=== PATIENT | male | born 1960 | race Caucasian/White ===

== ENCOUNTER 2019-06-16 17:28 | Inpatient (IN) ==
[2019-06-16 17:57] LABS: BASO# 0.01 X1000 (0.0-0.2); BASO% 0.1 % (0.0-0.8); HEMATOCRIT 43.4 % (42.0-52.0); HEMOGLOBIN 15.1 g/dL (14.0-18.0); IMM GRAN# 0.03 X1000 (0.0-0.04); IMM GRAN% 0.3 % (0.0-0.5); LYMPH# 0.36 X1000 (1.2-3.4); LYMPH% 4.2 % (20.5-51.1); MCH 32.1 PG (27-31); MCHC 34.8 g/dL (33-37); MCV 92.1 FL (81-99); MONO% 8.1 % (1.7-9.3); MPV 9.9 FL (7.4-10.4); NEUT# 7.57 X1000 (1.4-6.5); NEUT% 87.3 % (42.2-75.2); PLT 148 X1000 (130-400); RBC 4.71 XMIL (4.7-6.1); WBC 8.67 X1000 (4.8-10.8)
[2019-06-16 18:25] LABS: UR AMPHETAMINES QUAL NONE DETECTED (NONE DETECT); UR BARBITUATES QUAL NONE DETECTED (NONE DETECT); UR BENZODIAZEPIN QUAL PRESUMPTIVE POSITIVE (NONE DETECT); UR CANNABINOIDS QUAL PRESUMPTIVE POSITIVE (NONE DETECT); UR COCAINE QUAL NONE DETECTED (NONE DETECT); UR METHADONE QUAL NONE DETECTED (NONE DETECT); UR METHAMPHETAMINE QUAL NONE DETECTED (NONE DETECT); UR OPIATES QUAL PRESUMPTIVE POSITIVE (NONE DETECT); UR OXYCODONE QUAL NONE DETECTED (NONE DETECT); UR PCP QUAL NONE DETECTED (NONE DETECT); UR PROPOXYPHENE QUAL NONE DETECTED (NONE DETECT); UR TCA QUAL NONE DETECTED (NONE DETECT)
[2019-06-16 18:25] LABS: AGAP 21; ALKALINE PHOSPHATASE 107 U/L (32-122); BUN 14 mg/dL (8-22); CALCIUM 9.4 mg/dL (8.8-10.2); CHLORIDE 93 mmol/L (98-107); COSMO 277; CREATININE 0.6 mg/dL (0.7-1.2); ESTIMATED GFR > 60; GLUCOSE 178 mg/dL (70-104); GOT 24 U/L (10-34); GPT 18 U/L (10-44); POTASSIUM 3.3 mmol/L (3.5-5.1); SODIUM 136 mmol/L (136-145); TCO2 22 mmol/L (25-35); TOTAL PROTEIN 7.5 g/dL (6.3-8.3)
[2019-06-16 18:30] LABS: BILIRUBIN URINE 1+ (NEGATIVE); BLOOD URINE 1+ (NEGATIVE); CLARITY SL. CLOUDY (CLEAR); COLOR YELLOW; KETONE URINE 2+(Moderate) mg/dL (NEGATIVE); LEUKOCYTES URINE TRACE (NEGATIVE); NITRITE URINE NEGATIVE (NEGATIVE); PROTEIN URINE TRACE mg/dL (NEGATIVE); UROBILINOGEN URINE 4 mg/dL
[2019-06-16 18:40] LABS: URINE BACTERIA 1+ /HFP; URINE EPITHELIAL CELLS <10 /HPF (<10)
[2019-06-16 18:41] LABS: URINE CAST NONE SEEN /LPF; URINE CRYSTAL URIC ACID PRESENT /HPF; URINE SOURCE CLEAN CATCH; URINE WBC <10 /HPF (<10); URINE YEAST NONE SEEN /HPF
[2019-06-16] MEDS ORDERED: GEODON IM ONE (18:42)
[2019-06-16] MEDS ORDERED: STERILE WATER INJ. INJ ONE (18:42)
--- NOTE | 2019-06-16 18:43 | PROVIDER DOCUMENTATION ---
This chart was entered by Vita Bhardwaj Scribe, acting as scribe for Stanton Chavira MD. HPI-General Adult - General Chief Complaint: Altered Mental Status Stated Complaint: ams Time Seen by Provider: 06/16/19 17:38 Source: patient, EMS Allergies/Adverse Reactions: Patient Allergies Allergy/AdvReac Type Severity Reaction Status Date / Time NSAIDS (Non-Steroidal AdvReac NAUSEA/VOMI Verified 03/11/17 13:45 Anti-Inflamma TING Home Medications: Home Medication List Medication Instructions Recorded Confirmed Last Taken Type Acetaminophen E.r. [Tylenol 650 mg PO TID #20 tablet 03/11/17 Unknown Rx Arthritis] Calcitonin,[place],Synthetic 1 spray NS DAILY 06/17/19 06/17/19 Unknown History [Miacalcin] Gabapentin 800 mg PO Q6HR 06/17/19 06/17/19 Unknown History Hydrochlorothiazide 25 mg PO DAILY 06/17/19 06/17/19 Unknown History Levocetirizine Dihydrochloride 5 mg PO DAILY 06/17/19 06/17/19 Unknown History [Xyzal] Montelukast Sodium [Singulair] 10 mg PO HS 06/17/19 06/17/19 Unknown History Sertraline HCl [Zoloft] 100 mg PO DAILY 06/17/19 06/17/19 Unknown History - History of Present Illness -Gen Adult Nature of Presenting Problems: 59 yowm presents to the ed via ems with c/o back pain. pt sts he fell last night in his bathroom and on exam is a/o x3. per ems pt family called 911 due to ams and ems sts pt was a/o x1. pt is restless and is in constant movement in the bed. pt answers all questions when asked and at this time pt has no family in the er. pt had recent knee sx pt admits to smoking marijuana recently Location of Pain/Injury: reports: back (thoracic and lumbar) Pain Radiation: reports: no radiation Quality of Pain: reports: aching Severity: reports: moderate Onset/Duration: reports: last night (fell) Timing: reports: still present Context/Activities at Onset: reports: other (fell in bathroom/denies LOC or head injury) Modifying Factors: improves with: nothing Associated Symptoms: reports: back/neck pain (back pain). denies: chest pain, diarrhea, fever/chills, headaches, nausea, shortness of breath, vomiting, weakness Similar Symptoms Previously?: Yes Recently seen or treated by another doctor?: No Review of Systems - Adult - REVIEW OF SYSTEMS - ADULT Constitutional: denies: chills, fever Eyes: reports: no symptoms reported Ears, Nose, Mouth & Throat: reports: no symptoms reported Cardiovascular: denies: chest pain, palpitations, syncope Respiratory: denies: cough, shortness of breath, wheezing Gastrointestinal: denies: abdominal pain, diarrhea, nausea, vomiting Genitourinary: reports: no symptoms reported Musculoskeletal: reports: see HPI, back pain, muscle aches. denies: neck pain Integumentary: reports: no symptoms reported Neurological: reports: loss of balance. denies: ataxia, dizziness/vertigo, headache/migraines, slurred speech Psychiatric: reports: no symptoms reported Endocrine: reports: no symptoms reported Hematologic/Lymphatic: reports: no symptoms reported Allergic/Immunologic: reports: no symptoms reported All Other Systems: Reviewed and Negative Past History - Adult - PAST MEDICAL HISTORY-ADULT Review of Records: reports: Old Records Reviewed, Nursing Assessment Review, Medications Reviewed, Social history reviewed & non-contributory. Major Childhood Illnesses: reports: denies history Cardiovascular: reports: HTN Respiratory: reports: denies history Gastrointestinal: reports: GERD, GI bleed Genitourinary: reports: denies history Musculoskeletal: reports: chronic pain Hand Dominance: Right Handed Neurological: reports: denies history Psychiatric: reports: anxiety Endocrine/Immune: reports: denies history Other Conditions: reports: denies history - PRIOR SURGERIES/PROCEDURES Surgical/Procedure History: reports: recent surgery (knee), orthopedic (extremity), back/neck, gastric bypass - IMMUNIZATION STATUS Childhood Immunizations: See Nurse Assessment Flu Vaccine: See Nurse Assessment - FAMILY HISTORY Family History: reviewed, not pertinent - SOCIAL HISTORY Smoking: denies Substance Use: marijuana Living Situation: family Physical Exam-General - PHYSICAL EXAM-ADULT Exam Limited by: pt is restless and moving all in the bed. is a/o x3 Initial Vital Signs Reviewed: Yes - CONSTITUTIONAL General Appearance: appears well, alert, mild distress, other (restless) - EYES Eyes: pink conjunctivae - HEAD, EARS, NOSE, MOUTH & THROAT HENMT: moist mucous membranes - NECK Neck: full range of motion, normal inspection - RESPIRATORY Respiratory: chest non-tender, lungs clear, normal breath sounds - CARDIOVASCULAR Cardiovascular: normal peripheral pulses, tachycardia (121) - CHEST (BREASTS) Chest/Breast: deferred - GASTROINTESTINAL (ABDOMEN) Abdominal Exam: normal bowel sounds, non tender, soft - GENITOURINARY Male Genitalia: deferred Rectal Exam: deferred Hemoccult Exam: deferred - MUSCULOSKELETAL Back Exam: no CVA tenderness, ecchymosis (left thoracic), other (abrasion to left posterior shoulder/pt c/o thoracic and lumbar pain) Extremity: normal range of motion, normal capillary refill, pelvis stable - SKIN Integumentary: warm/dry, abrasion(s) (left posterior shoulder), ecchymosis (left back), pallor - NEUROLOGIC Neurologic: grossly normal - PSYCHIATRIC Psych/Mental Status: normal thought content, normal thought process, oriented x 3, disheveled Progress - PLAN OF CARE/RESULTS Result Diagrams: 06/16/19 17:45 06/16/19 17:45 - EKG 1 Time of EKG reading by physician:: 17:51 EKG Read and Signed by:: Stanton Chavira EKG Interpretation (*Must complete 3 of following elements*): Abnormal Rate: 117 Rhythm: sinus tachycardia [place]: normal QRS: other (prolonged QT) IN Interval: normal Comments: ST and T wave abnormality consider inferor or anterior ischemia - CT/MRI 1 CT Study: Cervical Spine, Head, Neck Impression: See EMR Report 2 CT Study: Abdomen, Pelvis, Thorax Impression: See EMR Report - CHANGE OF SHIFT REPORT (ED Provider) 1 Report Given and Care Transferred to:: Dr Hogan Time of Transfer: 19:00 Items Pending: Labs, CT/MRI Results Departure - Departure Date of Disposition Decision: 06/17/19 Time of Disposition Decision: 01:16 DIAGNOSIS: Altered mental status Disposition: ADMITTED INPATIENT 09 Certified Medical Emergency: Emergent Condition: Stable - Critical Care Note This patient required my direct & personal management of CC.: Yes Total Time (mins): 60 Critical Care Statement: This patient required my direct personal management to treat or rule out processes, the absence of which, could potentiallly result in sudden, clinically significant life or limb threatening deterioration. Attestation - Physician/ [place] Attestation Patient care was provided by Advanced Practice Provider:: No The physician spent face to face time with patient:: Yes Advanced Practice Provider documentation review:: Supervising physician onsite and consulted in the evaluation and care of this patient. The physician did have a face to face encounter with the patient. This chart was documented by the indicated scribe, (Vita Bhardwaj Scribe) and accurately reflects the services I performed and decisions made by me, Stanton Chavira MD, as attested by the provider's signature.
--- NOTE | 2019-06-16 19:04 | EKG Report ---
Test Performed on : 06/16/2019 5:51:03 PM Test Reason : ams Blood Pressure : / mmHG Vent. Rate : 117 BPM Atrial Rate : 117 BPM P-R Int : 120 ms QRS Dur : 090 ms QT Int : 434 ms P-R-T Axes : 000 014 024 degrees QTc Int : [address] & T wave abnormality, consider inferior ischemia ST & T wave abnormality, consider anterior ischemia Prolonged QT Abnormal ECG When compared with ECG of 11-MAR-2017 14:00, ST now depressed in Inferior leads ST now depressed in Anterolateral leads T wave inversion now evident in Inferior leads T wave inversion now evident in Anterior leads Unconfirmed Result
--- NOTE | 2019-06-16 20:12 | Diag Imaging Result Doc PS360 ---
EXAM: CT HEAD/C-SPINE W/O CONTRAST 06/16/2019 HISTORY: ams, fall TECHNIQUE: This exam was performed using automated exposure control, adjustment of mA or kV according to patient size, and/or use of iterative reconstruction technique. COMMENT: There is no evidence of mass effect, bleed, or abnormal extra-axial fluid collection. The paranasal sinuses are clear. There is apparent displacement of the nasal bones to the left. Cervical spine: There is considerable motion artifact. The facets appear to be aligned. There is no evidence of prevertebral soft tissue swelling. There is no evidence of fracture or subluxation. IMPRESSION: No evidence of acute disease intracranially or in the cervical spine. Electronically signed by Juan Cardoza 06/16/2019 8:10 PM
[2019-06-16] MEDS ORDERED: NS 1,000 ML IV ONE ×3 (20:21→23:30)
[2019-06-16] MEDS ORDERED: VERSED IV ONE (20:36)
[2019-06-16] MEDS ORDERED: MAGNESIUM SULFATE 2 GM/S.W.I. 2 GM/50 ML IVPB IV ONE (20:52)
[2019-06-16] MEDS ORDERED: ROCEPHIN 2 GM in NS 50 ML IV ONE (21:02)
[2019-06-16] MEDS ORDERED: AMIDATE IV ONE ×2 (21:09→21:45)
[2019-06-16] MEDS ORDERED: ZEMURON IV ONE (21:10)
[2019-06-16] MEDS ORDERED: QUELICIN ONE (21:30)
[2019-06-16] MEDS ORDERED: KETAMINE ONE (21:36)
--- NOTE | 2019-06-16 21:38 | Diag Imaging Result Doc PS360 ---
EXAM: CHEST-PORTABLE 06/16/2019 HISTORY: FALL TECHNIQUE: AP portable at 2145 COMMENT: The inspiration is suboptimal. There are some apparently old rib fractures on the right which were present on the previous examination. Considering the degree of inspiration there has been no significant change since 03/10/2018. IMPRESSION: Poor inspiration. Electronically signed by Juan Cardoza 06/16/2019 9:35 PM
[2019-06-16] MEDS ORDERED: KETAMINE IV ONE ×2 (21:40→21:45)
[2019-06-16] MEDS ORDERED: QUELICIN IV ONE (21:50)
[2019-06-16] MEDS: DIPRIVAN 1% 1,000 MG/100 ML BOTTLE IV SCH ×4 (21:55→23:37)
[2019-06-16] MEDS ORDERED: NORCURON ONE (22:02)
[2019-06-16] MEDS ORDERED: STERILE WATER INJ. ONE (22:03)
[2019-06-16] MEDS ORDERED: NORCURON IV ONE (22:05)
[2019-06-16] MEDS ORDERED: NS 1,000 ML ONE (22:44)
[2019-06-16] MEDS ORDERED: VANCOMYCIN 1 GM/NS 1 GM/250 ML IVPB IV ONE (23:08)
[2019-06-16 23:23] LABS: BE -0.2 mmoll (-3.0-3.0); BLOOD TYPE ARTERIAL; HCO3-(ACT) 24.7 mmoll (20.0-26.0); METHB 1.7 % (0.0-1.5); O2(CT) 19.5 mL/dL (15.0-23.0); O2HB 96.2 % (95.0-99.0); PCO2(98.6) 27 mmHg (35-45); PO2(98.6) 386 mmHg (60-100); SAMPLE BLOOD; SAO2 100.1 % (95.0-100.0); SRATE 16 BPM; THB 13.7 g/dL (11.5-17.4); TVOL 550 mL; pH(98.6) 7.51 (7.35-7.45)
[2019-06-16 23:25] LABS: ALLEN TEST YES; MODALITY VENTILATOR
[2019-06-17] MEDS: DIPRIVAN 1% 1,000 MG/100 ML BOTTLE IV SCH ×9 (00:12→21:02)
[2019-06-17] MEDS ORDERED: ZOFRAN IV PRN (02:24)
[2019-06-17] MEDS ORDERED: SODIUM CHLORIDE 0.9% INJ SCH (02:30)
[2019-06-17] MEDS: PEPCID IV SCH ×2 (03:08→13:59)
[2019-06-17] MEDS: LOVENOX SUBQ SCH (03:08)
[2019-06-17] MEDS: POTASSIUM CHLORIDE 20 MEQ/SWI 20 MEQ/100 ML IVPB IV SCH ×2 (03:08→05:48)
[2019-06-17 04:03] LABS: HEMOGLOBIN A1C 5.2 % (4.8-6.0)
[2019-06-17 05:08] LABS: BLOOD TYPE ARTERIAL; SAMPLE BLOOD
[2019-06-17 05:09] LABS: ALLEN TEST YES; BE -0.6 mmoll (-3.0-3.0); HCO3-(ACT) 24.4 mmoll (20.0-26.0); METHB 1.4 % (0.0-1.5); MODALITY VENTILATOR; O2(CT) 29.7 mL/dL (15.0-23.0); O2HB 96.8 % (95.0-99.0); PCO2(98.6) 28 mmHg (35-45); PO2(98.6) 201 mmHg (60-100); SAO2 100.2 % (95.0-100.0); SRATE 14 BPM; THB 21.6 g/dL (11.5-17.4); TVOL 500 mL; pH(98.6) 7.48 (7.35-7.45)
--- NOTE | 2019-06-17 05:48 | HISTORY AND PHYSICAL ---
CHIEF COMPLAINT: Altered mental status. PRIMARY CARE PROVIDER: Carrie Samano. HISTORY OF PRESENT ILLNESS: Mr. Ravi is a 59-year-old male who presented to [facility] tonight after the family called EMS related to altered mental status. Apparently he had a fall last night in the bathroom. The family stated the patient was alert and oriented x1. On assessment at [facility] he was found to be restless and in constant movement. Apparently at that time he answered all questions. There was some mention of a recent surgery, however, the two areas mentioned were knee and back and no recent incisions could be found on the patient. This was during my assessment when he arrived at [facility]'s ICU. Again while in the emergency room he became more and more restless and agitated. He received multiple doses of ketamine as well as Geodon and ultimately was intubated and sedated. He will be admitted for further evaluation and treatment. PAST MEDICAL HISTORY: All past medical history comes from ER charting. It appears that he has had hypertension, GERD, GI bleed, chronic pain and anxiety. SURGICAL HISTORY: Is noted in the ER note as recent knee surgery, orthopedic extremity, back, neck and gastric bypass. FAMILY HISTORY: This could not be reviewed. SOCIAL HISTORY: Apparently denies tobacco. He does drink. I am unsure how often, and he recently used marijuana. ALLERGIES: NSAIDs. HOME MEDICATIONS: No list is available. REVIEW OF SYSTEMS: Review of systems could not be obtained. Patient is intubated and sedated. PHYSICAL EXAMINATION: VITAL SIGNS: Temp 98.9, pulse 79, respirations 14, blood pressure 100/63, oxygen saturation 100% on mechanical ventilation. GENERAL: A 59-year-old male lying in the ER stretcher. Intubated and sedated. No acute distress. HEENT: Head is atraumatic, normocephalic. Pupils are miotic, equal, round, sluggishly reactive. Sclerae anicteric. Conjunctivae is pale. Oral mucosa is mildly dry. ET tube in place. NECK: Trachea midline. No JVD. CARDIAC: S1, S2 appreciated. No murmurs, gallops, rubs. LUNGS: Clear to auscultation bilaterally. No rhonchi, wheezes or rales. Symmetric rise and fall of respirations. ABDOMEN: Soft, nondistended. Bowel sounds present in all four quadrants. Normoactive. No pulsatile mass or organomegaly. EXTREMITIES: No cyanosis, clubbing or edema. SKIN: Clean and dry with abrasions on his posterior shoulder on the left side, ecchymosis on the left back. NEUROLOGICAL: Intubated and sedated. Could not be assessed. DIAGNOSTIC DATA: EKG, sinus tachycardia. Prolonged Qt interval. ST and T wave abnormality. CT of the head, no acute intracranial process. CT of the abdomen and pelvis and thorax is pending. Chest x-ray, ET tube needs to be moved back around 2 cm. It is at the level of the ra. Poor film. Patient possibly has dextrocardia. No infiltrates or edema. LABORATORY DATA: WBC 8.67, hemoglobin 15.1, hematocrit 43.4, platelet count 148, sodium 136, potassium 3.3, chloride 93, carbon dioxide 22, BUN 14, creatinine 0.6, glucose 178. ASSESSMENT AND PLAN: 1. Acute delirium. This is of unknown etiology. It could be toxic metabolic encephalopathy. The family seem to think that it was possible that the patient had taken too much pain medicine. Also recently apparently had used marijuana. Toxicology screen was positive for benzodiazepines, opiates and cannabinoids. I am unsure how often the patient drinks. Will continue supportive treatment with fluids, keep the patient intubated and sedated at this time and check electrolytes. 2. Hypokalemia. Treat and recheck. 3. Respiratory alkalosis. The patient was hyperventilating at that time. This will resolve with sedation and ventilation. 4. Hyperglycemia. Check hemoglobin A1c. As far as I know the patient does not carry a diagnosis of diabetes mellitus. 5. Alcohol use. Unknown how frequent this is. Will give the patient a banana bag. Check electrolytes. Further recommendations per the patient's clinical course. Critical care time 30 minutes. Dictated by MELA Burt for Robbi Manuel MD cc: MELA Haney MD Independent exam showed sedated middle aged WM who was only responsive to pain grimacing. Very limited exam. Suspect that pt was either withdrawing from or is intoxicated from something. For now, supportive measures and will need to be reassessed later today off sedation. MTDD
--- NOTE | 2019-06-17 07:13 | Diag Imaging Result Doc PS360 ---
EXAM: CHEST-PORTABLE 06/16/2019 HISTORY: TUBE PLACEMENT TECHNIQUE: AP portable at 2215 COMMENT: There is an endotracheal tube with its tip at thoracic inlet. This is actually a centimeter above the ra. The inspiration is markedly suboptimal. Considering the degree of inspiration there has been no significant change since the previous study at 2145. IMPRESSION: Poor inspiration. Electronically signed by Juan Cardoza 06/17/2019 7:11 AM
--- NOTE | 2019-06-17 07:17 | Diag Imaging Result Doc PS360 ---
EXAM: CHEST-PORTABLE 06/17/2019 HISTORY: ET tube withdrawn 2 cm; Confirm NG tube placement TECHNIQUE: AP portable at 0513 COMMENT: There is an endotracheal tube with its tip at the thoracic inlet and an NG tube which passes below the diaphragm. There is atelectasis in the left base which is worse than on 06/16/2019. IMPRESSION: Worsened atelectasis versus pneumonia left lower lobe. Electronically signed by Juan Cardoza 06/17/2019 7:15 AM
[2019-06-17] MEDS: M.V.I.-12 10 ML, FOLIC ACID 1 MG, MAGNESIUM SULFATE 1 GM, THIAMINE 100 MG in NS 1,000 ML IV SCH (08:34)
[2019-06-17] MEDS: ZOSYN 3.375 GM in NS 50 ML IV SCH ×2 (11:10→18:06)
[2019-06-17] MEDS: LEVAQUIN 500 MG/D5W 500 MG/100 ML IVPB IV SCH (11:10)
--- NOTE | 2019-06-17 12:57 | PROGRESS NOTE ---
DATE: 06/17/2019 SUBJECTIVE: This morning Mr. Ravi was seen in the ICU. He is currently intubated and sedated on propofol. There is no family member at the bedside. OBJECTIVE: Vital signs: Blood pressure 134/90, pulse 66, respirations 14, temperature 97.3 degrees. The patient is saturating 100% on mechanical ventilator. General: Mr. Ravi is a 59- year-old gentleman. He is in bed. He is currently intubated. HEENT: Mucosa is pink and moist. Anicteric. Acyanotic. Neck: Supple. Chest: Good air entry bilaterally. No crepitations. Cardiovascular: Regular rate and rhythm. Abdomen: Soft. There is an old midline surgical scar around the umbilical area. Bowel sounds present. Extremities: No pedal edema. AIR SHOVEL OPERATOR: The patient will wiggle his toes to painful stimulation. The pupils are pinpoint and sluggishly reactive. He has good cough reflex. DIAGNOSTIC DATA: A CT scan of the head and neck was unremarkable. A chest x-ray this morning shows worsening atelectasis versus pneumonia in the left lower lobe. LABORATORY DATA: Reviewed. No major abnormality. Patient's phosphorus was 1.9. ASSESSMENT: 1. Acute altered mental status of unclear etiology. A CT scan is unremarkable. We think this is either metabolic encephalopathy or infectious versus drugs. I understand Mr. Ravi has a history of heavy alcohol use so alcohol withdrawal could be also a potential cause. His urine toxicology was positive for opioids, benzodiazepine and cannabinoids, which makes medications also a possibility. 2. Respiratory failure. Patient is currently on the ventilator. Pulmonary Medicine has been consulted. 3. Electrolyte abnormality (hypokalemia and hypophosphatemia). This is a very common electrolyte abnormality associated with chronic alcohol abuse. We are going to replace all of that. 4. History of alcohol abuse has been noted. 5. Left lower lobe infiltrate concerning for pneumonia. It is possible patient could have an aspiration pneumonia. We will start him on antimicrobial therapy. 6. In general, I think Mr. Ravi seems to be very comfortable under the ventilator. I understand he was remarkably altered when he came in, and as a result of that, they had to intubate him to secure the airway. 7. We will continue to follow up with Pulmonary Medicine for their recommendation. We will start the patient on broad-spectrum antibiotics to cover for possible aspiration pneumonia. 8. We will also continue replacing all his electrolyte abnormalities. cc: Himanshu Howard MD
[2019-06-17] MEDS: POTASSIUM CHLORIDE 20 MEQ in LR 1,000 ML IV SCH (18:00)
--- NOTE | 2019-06-17 18:21 | Diag Imaging Result Doc PS360 ---
EXAM: CHEST-PORTABLE - 06/17/2019 HISTORY: NG placement TECHNIQUE: Portable exam for nasogastric tube placement COMPARISON: None. FINDINGS: The tip of the nasogastric tube is at the expected location of the proximal to mid stomach. IMPRESSION: Nasogastric tube tip at proximal to mid stomach. Electronically signed by Eleuterio Acharya 06/17/2019 6:19 PM
[2019-06-18] MEDS: DIPRIVAN 1% 1,000 MG/100 ML BOTTLE IV SCH ×4 (00:57→10:52)
[2019-06-18] MEDS: POTASSIUM CHLORIDE 20 MEQ in LR 1,000 ML IV SCH ×3 (03:23→17:24)
[2019-06-18] MEDS: ZOSYN 3.375 GM in NS 50 ML IV SCH ×3 (03:23→18:11)
[2019-06-18] MEDS: LOVENOX SUBQ SCH (03:23)
[2019-06-18] MEDS: PEPCID IV SCH ×2 (03:23→14:55)
[2019-06-18 04:57] LABS: ALLEN TEST YES; BE -0.3 mmoll (-3.0-3.0); BLOOD TYPE ARTERIAL; HCO3-(ACT) 24.7 mmoll (20.0-26.0); METHB 1.5 % (0.0-1.5); O2(CT) 17.8 mL/dL (15.0-23.0); O2HB 95.8 % (95.0-99.0); PCO2(98.6) 29 mmHg (35-45); PO2(98.6) 112 mmHg (60-100); SAMPLE BLOOD; SAO2 99.4 % (95.0-100.0); SRATE 14 BPM; THB 13.1 g/dL (11.5-17.4); TVOL 500 mL; pH(98.6) 7.49 (7.35-7.45)
[2019-06-18 04:58] LABS: MODALITY VENTILATOR
[2019-06-18 05:35] LABS: AGAP 14; BUN 6 mg/dL (8-22); CALCIUM 8.2 mg/dL (8.8-10.2); CHLORIDE 105 mmol/L (98-107); COSMO 275; CREATININE 0.5 mg/dL (0.7-1.2); ESTIMATED GFR > 60; GLUCOSE 102 mg/dL (70-104); POTASSIUM 2.6 mmol/L (3.5-5.1); SODIUM 139 mmol/L (136-145); TCO2 20 mmol/L (25-35)
[2019-06-18] MEDS ORDERED: MAGNESIUM SULFATE 2 GM/S.W.I. 2 GM/50 ML IVPB IV ONE (06:09)
[2019-06-18 06:41] LABS: BASO# 0.01 X1000 (0.0-0.2); BASO% 0.2 % (0.0-0.8); EOS# 0.04 X1000 (0.0-0.7); EOS% 0.7 % (0.0-10.0); HEMOGLOBIN 11.6 g/dL (14.0-18.0); LYMPH# 0.68 X1000 (1.2-3.4); LYMPH% 11.7 % (20.5-51.1); MCH 32.8 PG (27-31); MCHC 35.2 g/dL (33-37); MCV 93.2 FL (81-99); MONO# 0.71 X1000 (0.11-0.59); MONO% 12.3 % (1.7-9.3); MPV 10.3 FL (7.4-10.4); NEUT# 4.35 X1000 (1.4-6.5); NEUT% 75.1 % (42.2-75.2); PLT 95 X1000 (130-400); RBC 3.54 XMIL (4.7-6.1); RDW 16.3 % (11.5-14.5); WBC 5.79 X1000 (4.8-10.8)
[2019-06-18] MEDS: POTASSIUM CHLORIDE 20 MEQ/SWI 20 MEQ/100 ML IVPB IV SCH ×2 (06:46→09:50)
--- NOTE | 2019-06-18 07:32 | Diag Imaging Result Doc PS360 ---
CHEST-1 VIEW - 06/18/2019 INDICATION: SOB COMPARISON: 06/17/2019 FINDINGS: Stable endotracheal tube and nasogastric tube. Lung volumes are lower, now critically low. There is worsening opacification of the left lung base. The right lung is fairly clear. The patient is heavily rotated. IMPRESSION: Critically low lung volumes. Worsening opacification of the left lung base due to any combination of atelectasis, infiltrate or effusion. Electronically signed by Mor Roca 06/18/2019 7:30 AM
--- NOTE | 2019-06-18 07:42 | CONSULTATION ---
DATE OF CONSULTATION: 06/17/2019 REQUESTING PROVIDER: REASON FOR CONSULTATION: Ventilator management. HISTORY OF PRESENT ILLNESS: This is a 59-year-old male with a medical history of hypertension, gastroesophageal reflux disease, GI bleeding, chronic pain syndrome and anxiety. He presented to the ED [place] yesterday afternoon via EMS with altered mental status. Drug screening was positive to opium, benzodiazepine, and cannabinoids. Per H and P, apparently while in the ER, the patient became more and more restless and agitated despite multiple doses of ketamine and Geodon. He eventually was intubated and sedated. He was transferred to our facility early this morning at 2:30 for further evaluation and management. The patient currently is still intubated and sedated by [place]. Urine in the drainage bag is brown and cloudy. Patient's mother and aunt are at the bedside. The patient's mother reported the patient had back surgery about a month ago. He has not been eating well for 2 days. The patient apparently had a gastric bypass about 15 years ago, and since that surgery he has vomiting and diarrhea all the time. His mother reported patient has a lot of trouble with his back. The patient apparently had 4 episodes of falls recently. The patient's mother also reported the patient is taking a lot of medications, but she is not clear what those medications are. PAST MEDICAL HISTORY: 1. Hypertension. 2. Gastroesophageal reflux disease. 3. GI bleeding. 4. Chronic pain. 5. Anxiety. PAST SURGICAL HISTORY: 1. Knee surgery. 2. Orthopedic extremity surgery. 3. Back surgery. 4. Neck surgery. 5. Gastric bypass surgery. FAMILY HISTORY: Father has dementia. SOCIAL HISTORY: The patient lives at home with his parents. He is on disability. He has a daughter who lives in [place]. He has a son who committed suicide 3 and a half years ago. The patient has no history of tobacco use. He started drinking for 10 to 12 years. He did use marijuana. Drug screening also showed positive for opium and benzodiazepines. ALLERGIES: NSAIDs. REVIEW OF SYSTEMS: Unable to be obtained. PHYSICAL EXAMINATION: Vital Signs: Temperature 97.2, blood pressure 134/90, pulse 66, respiratory rate 14, and oxygen saturation 100% on AC mechanical ventilator with spontaneous rate 14, FiO2 30%, tidal volume 500 and PEEP 5. General: Appears older than stated age, intubated and sedated. No acute distress at this time. HEENT: Atraumatic, normocephalic. Trachea midline. ET tube in place. Mucosa pink and slightly dry. Respiratory: Mechanically ventilated symmetrical excursion. Clear to auscultation bilaterally. Cardiovascular: Regular rate and rhythm. Gastrointestinal: Soft, nondistended. Normoactive bowel sounds in all 4 quadrants. Extremities: No pedal edema. No cyanosis. No clubbing. Dorsalis pedis 2+ bilaterally. Neurologic: Started on Diprivan drip and unresponsive to verbal stimuli. LABORATORY DATA: A pH 7.48, pCO2 28, PO2 201, HC03 24.4, base excess -0.6, and oxyhemoglobin 96.8. IMAGING DATA: Chest x-ray showed worsened atelectasis versus pneumonia left lower lobe. ASSESSMENT: This is a 59-year-old male with a medical history of hypertension, gastroesophageal reflux disease, GI bleeding, chronic pain and anxiety. He has been admitted to the ICU with acute altered mental status of unclear etiology, acute respiratory failure, and electrolyte abnormality. 1. Acute hypoxic respiratory failure. 2. Left lower lobe atelectasis versus pneumonia. 3. Acute altered mental status of unclear etiology. 4. Frequent fall. PLAN: 1. Continue AC mechanical ventilator, and will start weaning trials when appropriate. 2. Continue antibiotics per Dr. Howard. 3. Follow up with ABG, CBC, BMP, urine culture, blood culture, and chest x-ray. 4. Continue GI and DVT prophylaxis. 5. Further recommendations pending hospital course. Thank you for the courtesy of this consult. Dictated by MELA Reyes for Caitlin Caban MD cc: MELA Reyes MD [facility]
[2019-06-18] MEDS: M.V.I.-12 10 ML, FOLIC ACID 1 MG, MAGNESIUM SULFATE 1 GM, THIAMINE 100 MG in NS 1,000 ML IV SCH (09:50)
[2019-06-18] MEDS: LEVAQUIN 500 MG/D5W 500 MG/100 ML IVPB IV SCH (11:07)
[2019-06-18 12:14] LABS: BE -0.3 mmoll (-3.0-3.0); BLOOD TYPE ARTERIAL; HCO3-(ACT) 24.6 mmoll (20.0-26.0); METHB 1.4 % (0.0-1.5); O2(CT) 18.7 mL/dL (15.0-23.0); O2HB 95.7 % (95.0-99.0); PCO2(98.6) 32 mmHg (35-45); PO2(98.6) 97 mmHg (60-100); SAMPLE BLOOD; THB 13.8 g/dL (11.5-17.4); pH(98.6) 7.46 (7.35-7.45)
[2019-06-18 12:15] LABS: ALLEN TEST YES; MODALITY VENTILATOR
--- NOTE | 2019-06-18 13:34 | PROGRESS NOTE ---
DATE: 06/18/2019 SUBJECTIVE: This morning Mr. Ravi continues to be intubated and sedated on propofol, per the nursing staff no acute changes overnight. There is no family member at the bedside at the time of this encounter. OBJECTIVE: Vitals: Blood pressure is 126/74, pulse is 60, respiration is 14, temperature 97.6 degrees, patient is saturating 100% under the mechanical ventilator. General: Mr. Ravi is a 59- year-old gentleman he is in bed currently sedated and under the ventilator. Mucosa is pink and moist. Anicteric. Acyanotic. Neck: Supple. Chest: Good air entry bilateral. Some transmitted sounds from the vent. Cardiovascular: Regular rate and rhythm. No murmurs. Abdomen: Soft. There is some old scar on the umbilical area. Extremities: No pedal edema. COMMUNICATION TECHNICIAN: Pupils continue to be very pinpoint, sluggishly reactive and patient has gag reflex, will barely withdrawal to some painful stimulation. LABORATORY DATA: CBC is reviewed. Hemoglobin is down to 11.6, platelet count is 95,000. Chemistry is reviewed. Potassium is 3.6, bicarb of 20, gap is 16, phosphorus was remarkably low yesterday has been replaced. A chest x-ray this morning shows critical low lung volumes, worsened opacification on the left lung due to combination of atelectasis, infiltrates or effusion. ASSESSMENT: 1. Altered mental status on presentation of unclear etiology presumably metabolic versus drug- induced encephalopathy. 2. Acute hypoxemic respiratory failure. Patient continues to be on the ventilator. 3. History of alcohol use and abuse. 4. Electrolyte abnormality including hypokalemia and hypophosphatemia. This has been all replaced. 5. Left lower lobe infiltrate suspicious for aspiration pneumonia. Patient is on antimicrobial coverage. 6. Nutritional needs. At this point we will consult the dietitian for tube feeding recommendations if Mr. Ravi will not be extubated this morning. cc: Himanshu Howard MD
--- NOTE | 2019-06-18 14:12 | EKG Report ---
Test Performed on : 06/16/2019 8:54:25 PM Test Reason : ER Blood Pressure : / mmHG Vent. Rate : 111 BPM Atrial Rate : 111 BPM P-R Int : 178 ms QRS Dur : 080 ms QT Int : 338 ms P-R-T Axes : 040 043 -39 degrees QTc Int : [address] & T wave abnormality, consider inferior ischemia ST & T wave abnormality, consider anterolateral ischemia Abnormal ECG When compared with ECG of 16-JUN-2019 17:51, (Unconfirmed) T wave inversion more evident in Inferior leads Unconfirmed Result
[2019-06-18] MEDS: NORCO-5 PO PRN ×2 (14:55→20:43)
--- NOTE | 2019-06-18 15:23 | PULMONOLOGY PROGRESS NOTE ---
DATE: 06/18/2019 SUBJECTIVE: Propofol is on hold. The patient is moving in the bed. OBJECTIVE: Vital Signs: The patient has been afebrile for the last 24 hours. Blood pressure 129/90, heart rate 76, respiratory rate 18, oxygen saturation 100%. HEENT: Pupils are equal and reactive. Oropharynx appears clear. Neck: Neck is supple. Chest: Reveals occasional rhonchi bilaterally. Cardiac: S1, S2. Abdomen: Soft with mild increased tympany. Extremities: Without edema. IMAGING: Chest x-ray reveals increased opacification at the left base. LABORATORY: White blood count 5.79, hemoglobin 11.6, platelet count 95,000. Arterial blood gas reveals a pH of 7.49, pCO2 29, pO2 112. Sodium 139, potassium 2.6, chloride 105, bicarbonate 20, BUN 6, creatinine 0.5. IMPRESSION: A 59-year-old with altered mental status, aspiration pneumonia, acute hypoxemic respiratory failure, alcohol use, and history of chronic pain syndrome. PLAN: 1. Initiate a spontaneous breathing trial this morning with plans for extubation if tolerated. 2. Send a sputum for C and S. 3. Caution patient about the use of alcohol and pain medications in conjunction with each other. 4. Guarded prognosis. Time spent in critical care management: 30+ minutes cc: Waldo Degroot MD MTDD
[2019-06-18] MEDS: NEURONTIN PO SCH ×2 (17:24→20:42)
[2019-06-19] MEDS: ZOSYN 3.375 GM in NS 50 ML IV SCH ×2 (02:06→11:03)
[2019-06-19] MEDS: LOVENOX SUBQ SCH (02:06)
[2019-06-19] MEDS: PEPCID IV SCH (02:07)
[2019-06-19] MEDS: NORCO-5 PO PRN ×4 (02:07→23:52)
[2019-06-19 04:29] LABS: ALLEN TEST YES; BE 4.6 mmoll (-3.0-3.0); BLOOD TYPE ARTERIAL; HCO3-(ACT) 28.4 mmoll (20.0-26.0); METHB 1.5 % (0.0-1.5); O2(CT) 15.4 mL/dL (15.0-23.0); O2HB 93.2 % (95.0-99.0); PCO2(98.6) 38 mmHg (35-45); PO2(98.6) 69 mmHg (60-100); SAMPLE BLOOD; SAO2 97.1 % (95.0-100.0); THB 11.7 g/dL (11.5-17.4); pH(98.6) 7.48 (7.35-7.45)
[2019-06-19 04:31] LABS: MODALITY ROOM AIR
[2019-06-19] MEDS: POTASSIUM CHLORIDE 20 MEQ in LR 1,000 ML IV SCH (05:35)
[2019-06-19 07:12] LABS: AGAP 13; ALB/GLOB RATIO 1.3; ALBUMIN 3.2 g/dL (3.5-5.0); ALKALINE PHOSPHATASE 66 U/L (32-122); BUN 2 mg/dL (8-22); CALCIUM 8.2 mg/dL (8.8-10.2); CHLORIDE 106 mmol/L (98-107); COSMO 282; CREATININE 0.4 mg/dL (0.7-1.2); ESTIMATED GFR > 60; GLUCOSE 80 mg/dL (70-104); GOT 16 U/L (10-34); GPT 9 U/L (10-44); MAGNESIUM 1.9 mg/dL (1.5-2.7); PHOSPHORUS 2.1 mg/dL (2.7-4.5); POTASSIUM 2.9 mmol/L (3.5-5.1); SODIUM 144 mmol/L (136-145); TCO2 25 mmol/L (25-35); TOTAL BILIRUBIN 1.38 mg/dL (0.20-1.00); TOTAL PROTEIN 5.7 g/dL (6.3-8.3)
--- NOTE | 2019-06-19 07:45 | Diag Imaging Result Doc PS360 ---
CHEST-1 VIEW - 06/19/2019 INDICATION: SOB COMPARISON: 06/18/2019 FINDINGS: The patient has been extubated. Lung volumes are improved but still somewhat low. Stable left lower lobe consolidation. The right lung is grossly clear. Heart size is top normal. IMPRESSION: Patient extubated. Otherwise no significant change from prior. Electronically signed by Mor Roca 06/19/2019 7:43 AM
[2019-06-19] MEDS ORDERED: GABAPENTIN 800 MG PO SCH (08:00)
--- NOTE | 2019-06-19 08:18 | PROGRESS NOTE ---
DATE: 06/19/2019 SUBJECTIVE: This morning, Mr. Ravi referred to be doing a whole lot better. He said he was hurting at his back. He is normally a patient who follows up with Dr. Gorman. OBJECTIVE: Vital signs: His current vitals, blood pressure is 121/76, pulse of 72, respiration is 18, temperature is 97.5. General: On general exam, Mr. Ravi is a 59-year-old gentleman. He is in bed, no distress. HEENT: Mucosa is pink and moist. Anicteric. Acyanotic. Neck: Supple. Chest: Good air entry bilaterally. There is no crepitations. No rhonchi. Cardiovascular: Regular rate and rhythm. No murmurs. No rubs. No gallops. GI: Abdomen is soft, nontender. Bowel sounds present. There is an old scar on the umbilical area. Extremities: No pedal edema. CODING MACHINE OPERATOR: The patient is awake, alert, follows basic commands. Musculoskeletal: The patient has tenderness over the lower lumbar spine. The patient has no neurological deficit. The patient's I's and O's: Urine output 2125. He is currently positive balance of 4146 during the hospital course. No lab work yet at the time of the dictation. A chest x-ray this morning seems to suggest some consolidation in the left lower lobe, which remains stable. We are waiting on the official report. ASSESSMENT: 1. Altered mental status on presentation presumably drug-induced encephalopathy. 2. Acute hypoxemic respiratory failure. The patient was extubated yesterday. He is saturating well currently in room air. 3. History of alcohol use and abuse. 4. Electrolyte abnormality including hypokalemia, hypophosphatemia, this was replaced yesterday. We are waiting on the repeat tests this morning. 5. Left lower lobe pneumonia presumably aspiration. The patient is on antimicrobial therapy. 6. Nutritional support. We are going to start the patient on a regular diet today. The patient is also getting vitamins. So in general today, we are discontinue the Brown catheter. We are going to start Mr. Ravi on a regular diet. Will consult PT. Mr. Ravi is a potential discharge tomorrow. cc: Himanshu Howard MD
[2019-06-19] MEDS: NEURONTIN PO SCH ×4 (09:00→20:37)
[2019-06-19] MEDS: ZOLOFT PO SCH (09:00)
[2019-06-19] MEDS: M.V.I.-12 10 ML, FOLIC ACID 1 MG, MAGNESIUM SULFATE 1 GM, THIAMINE 100 MG in NS 1,000 ML IV SCH (09:00)
[2019-06-19] MEDS ORDERED: POTASSIUM CHLORIDE 20 MEQ/SWI 20 MEQ/100 ML IVPB IV SCH (11:00)
[2019-06-19] MEDS: NEUTRA-PHOS PO SCH ×3 (13:32→20:37)
[2019-06-19] MEDS: KLOR-CON PO SCH ×2 (13:33→20:37)
[2019-06-19] MEDS: AUGMENTIN PO SCH (20:37)
[2019-06-19] MEDS ORDERED: KLOR-CON PO SCH (21:00)
[2019-06-19] MEDS ORDERED: SINGULAIR PO SCH (21:00)
--- NOTE | 2019-06-19 21:12 | PULMONOLOGY PROGRESS NOTE ---
DATE: 06/19/2019 SUBJECTIVE: The patient is awake, alert, and conversant. He is without specific complaints. OBJECTIVE: Vital Signs: The patient has been afebrile for the last 24 hours. Blood pressure 111/67, heart rate 90, respiratory rate 16, oxygen saturation 95% on 30% FiO2. HEENT: Pupils are equal and reactive. Oropharynx appears clear. Neck: Supple. Chest: Reveals decreased breath sounds at the left base. Cardiac exam: S1-S2. Abdomen: Soft. Extremities: Without edema. LABORATORIES: Arterial blood gas this morning reveals a pH of 7.48, pCO2 of 38, PO2 of 69. White blood count not obtained today. Chemistries: Sodium 144, potassium 2.9, chloride 106, bicarbonate 25, BUN 10, creatinine 0.4. IMPRESSION: A 59-year-old with: 1. Aspiration pneumonia. 2. Acute hypoxemic respiratory failure. 3. History of chronic pain syndrome. 4. Daily alcohol use. 5. Encephalopathy. DISCUSSION: A 59-year-old with the problems outlined above. He continues to improve. He is now doing well off mechanical ventilation. PLAN: 1. Continue current antibiotic regimen. 2. Continue bronchial hygiene. 3. Wean oxygen as tolerated. 4. Anticipate transfer to the floor today. cc: Waldo Degroot MD
[2019-06-20] MEDS: LOVENOX SUBQ SCH (01:31)
[2019-06-20 05:13] LABS: ALLEN TEST YES; BE 3.4 mmoll (-3.0-3.0); BLOOD TYPE ARTERIAL; HCO3-(ACT) 27.5 mmoll (20.0-26.0); METHB 1.4 % (0.0-1.5); O2(CT) 15.2 mL/dL (15.0-23.0); O2HB 94.4 % (95.0-99.0); PCO2(98.6) 35 mmHg (35-45); PO2(98.6) 81 mmHg (60-100); SAMPLE BLOOD; SAO2 98.5 % (95.0-100.0); THB 11.4 g/dL (11.5-17.4); pH(98.6) 7.49 (7.35-7.45)
[2019-06-20 05:16] LABS: MODALITY ROOM AIR
[2019-06-20] MEDS ORDERED: PRILOSEC PO SCH (07:00)
[2019-06-20 07:25] VITALS: BP 150/87
[2019-06-20] MEDS: NEUTRA-PHOS PO SCH ×2 (08:06→14:07)
[2019-06-20] MEDS: NEURONTIN PO SCH ×2 (08:07→14:06)
[2019-06-20] MEDS: ZOLOFT PO SCH (08:07)
[2019-06-20] MEDS: KLOR-CON PO SCH (08:07)
[2019-06-20] MEDS: AUGMENTIN PO SCH (08:07)
[2019-06-20] MEDS: NORCO-5 PO PRN (08:10)
--- NOTE | 2019-06-20 08:47 | Diag Imaging Result Doc PS360 ---
CHEST-1 VIEW - 06/20/2019 INDICATION: SOB COMPARISON: 06/19/2019 FINDINGS: There has been significant improvement in the left basilar infiltrate/atelectasis. The lungs are nearly clear. Heart size is normal. No large pleural effusion. IMPRESSION: Near complete resolution of the left basilar infiltrate/atelectasis. Electronically signed by Mor Roca 06/20/2019 8:45 AM
[2019-06-20] MEDS ORDERED: THERA M PLUS PO SCH (09:00)
[2019-06-20] MEDS ORDERED: VITAMIN B-1 PO SCH (09:00)
[2019-06-20] MEDS ORDERED: LEVAQUIN PO SCH (09:00)
[2019-06-20 10:08] LABS: AGAP 16; ALBUMIN 3.8 g/dL (3.5-5.0); BUN 2 mg/dL (8-22); CALCIUM 9.2 mg/dL (8.8-10.2); CHLORIDE 101 mmol/L (98-107); COSMO 278; CREATININE 0.6 mg/dL (0.7-1.2); ESTIMATED GFR > 60; GLUCOSE 109 mg/dL (70-104); MAGNESIUM 1.6 mg/dL (1.5-2.7); PHOSPHORUS 3.1 mg/dL (2.7-4.5); POTASSIUM 3.7 mmol/L (3.5-5.1); SODIUM 141 mmol/L (136-145); TCO2 24 mmol/L (25-35)
--- NOTE | 2019-06-20 21:24 | DISCHARGE SUMMARY ---
ADMISSION DATE: 06/17/2019 DISCHARGE DATE: 06/20/2019 DISPOSITION: Home. FOLLOWUP: Will be with MELA Haney. CONSULTATION DURING THIS ADMISSION: Respiratory was consulted. Patient was seen by Dr. Degroot. INVASIVE PROCEDURE DONE DURING THIS ADMISSION: None. IMAGING STUDIES OF SIGNIFICANCE: A CT scan of the head and neck showed no evidence of acute disease. Multiple chest x-rays were done this morning. There was near complete resolution of the left basilar infiltrate or atelectasis. ADMISSION DIAGNOSES: 1. Acute delirium. 2. Hypokalemia. 3. Respiratory alkalosis. DISCHARGE DIAGNOSES: 1. Acute hypoxemic respiratory failure needing intubation, presumably from aspiration pneumonia. 2. Altered mental status presumably drug-induced encephalopathy. 3. History of alcohol use and abuse. 4. Electrolytes abnormality replaced. 5. Left lower lobe pneumonia, presumably aspiration. 6. Prescription and recreational drug use and abuse. Urine toxicology was positive for opioids, benzodiazepines and cannabinoids. DISCHARGE MEDICATIONS: 1. Hydrochlorothiazide 25 mg p.o. daily. 2. Zoloft 100 mg p.o. daily. 3. Montelukast 10 mg p.o. at bedtime. 4. Levocetirizine 5 mg p.o. daily. 5. Gabapentin 800 mg p.o. q.6. 6. Calcitonin. 7. [place] 5 mg 3 times per day p.r.n. 8. Augmentin 875 p.o. q.12. 9. Multivitamin. 10. Thiamine 100 mg p.o. daily. PRESENTING COMPLAINT: Altered mental status. HISTORY OF PRESENTING COMPLAINT: Mr. Ravi is a 59-year-old male with history of hypertension, GERD, chronic pain, and anxiety. He comes to the emergency department because of altered mental status. He initially presented to [facility]. We understand he just progressively declined in his mentation and ended up being intubated in the ER at [facility]. He was transferred to [facility] for higher level of care. Mr. Ravi was transferred to the ICU under critical care management. HOSPITAL COURSE: During the hospital course, imaging studies also did reveal some infiltrate in the left lower lobe which was interpreted to be aspiration pneumonia. Patient was started on broad-spectrum IV antibiotics. Mr. Ravi was seen initially by Dr. Caban, automatic spooler operator, and was followed up by Dr. Degroot. He was successfully extubated and transferred to the floor. He maintained good oxygenation. At the time of discharge, he was actually on room air. He has been tolerating his diet. We have spoken extensively about prescription drug use. The daughter was at the bedside at the time of the encounter today. This morning, Mr. Ravi is clinically stable. His vitals, blood pressure 150/87, pulse is 77, respiration is 20, temperature 98.6 degrees. He is saturating 100% on room air. He is clinically stable, and he is currently asymptomatic. He is going to be discharged, and he will follow up with his primary care provider. Other discharge instructions including prescription drug use and abuse, discussions were all held with Mr. Ravi and the daughter. Both of them voiced understanding. Time spent for discharge was 34 minutes. cc: MD Carrie Covarrubias CRNP
== END 2019-06-20 15:27 | disposition home or self-care (01) | DRG 91 ==
LOC: SUPCPDRO → P.ED 17:28 → SUATTDRO 06-17 00:24 → P.ICU 06-17 00:24 → ICU 06-17 00:39 → 3N 06-19 14:19
PROVIDERS: ATTEND Internal Medicine